=== PATIENT | female | born 1935 | race Caucasian/White ===

== ENCOUNTER 2016-07-11 09:29 | Inpatient (IN) | payer MEDICARE ==
[~2016-07-11] VITALS: Ht 154.9 cm; Wt 73.0 kg
[2016-07-11] MEDS ORDERED: WARF5TAB PO (09:52)
[2016-07-11] MEDS ORDERED: AMIO100T4 PO (09:52)
[2016-07-11] MEDS ORDERED: METO25TA35 PO (09:52)
[2016-07-11] MEDS ORDERED: AMLO5TAB2 PO (09:52)
[2016-07-11] MEDS ORDERED: FURO-93 PO (09:52)
[2016-07-11] MEDS ORDERED: ASPI-496 PO (09:52)
[2016-07-11] MEDS ORDERED: SODIUM CHLORIDE FLUSH 10ML SYR IVF ONE ×2 (10:00→10:27)
[2016-07-11 10:32] LABS: BLOOD UREA NITROGEN 20 mg/dL (7-18)
[2016-07-11 10:38] LABS: ASPARTATE AMINO TRANSFERASE 18 U/L (15-37)
[2016-07-11 10:41] LABS: IS PT STATUS REG ER OR PRE ER? YES
[2016-07-11 12:59] VITALS: BP 128/79
[2016-07-11] MEDS ORDERED: WARF2.5T73 PO (12:59)
[2016-07-11] MEDS ORDERED: PITA2TAB2 PO (12:59)
[2016-07-11] MEDS ORDERED: MEMA5TAB PO (12:59)
[2016-07-11] MEDS ORDERED: LISI5TAB7 PO (12:59)
[2016-07-11] MEDS ORDERED: EZET10TA3 PO (12:59)
[2016-07-11] MEDS ORDERED: DONE5TAB7 PO (14:16)
[2016-07-11] MEDS ORDERED: POTA10CA PO (16:51)
[2016-07-11] MEDS ORDERED: ONDANSETRON 2MG/ML, 2ML IVPush PRN (17:00)
[2016-07-11] MEDS ORDERED: FUROSEMIDE 20 MG TABLET PO PRN (17:00)
[2016-07-11] MEDS ORDERED: ACETAMINOPHEN 325 MG TABLET PO PRN (17:00)
[2016-07-11 19:37] VITALS: BP 109/68
[2016-07-11] MEDS ORDERED: EZETIMIBE 10 MG TABLET PO SCH (21:00)
[2016-07-11 21:42] LABS: IS PT STATUS REG ER OR PRE ER? NO
[2016-07-12 02:00] VITALS: BP 124/66
[2016-07-12 07:04] LABS: IS PT STATUS REG ER OR PRE ER? NO
[2016-07-12 07:05] LABS: ASPARTATE AMINO TRANSFERASE 19 U/L (15-37); BLOOD UREA NITROGEN 17 mg/dL (7-18)
[2016-07-12 08:25] VITALS: BP 136/78
[2016-07-12] MEDS ORDERED: MEMANTINE 5MG TABLET PO SCH (09:00)
[2016-07-12] MEDS ORDERED: POTASSIUM CHLORIDE 10 MEQ TABLET.ER PO SCH (09:00)
[2016-07-12] MEDS ORDERED: ASPIRIN 81 MG TABLET EC PO SCH (09:00)
[2016-07-12] MEDS ORDERED: LISINOPRIL 5 MG TABLET PO SCH (09:00)
[2016-07-12] MEDS ORDERED: AMLODIPINE 5 MG TABLET PO SCH (09:00)
[2016-07-12] MEDS ORDERED: AMIODARONE 200 MG TABLET PO SCH (09:00)
[2016-07-12] MEDS ORDERED: METOPROLOL TARTRATE 25 MG TABLET PO SCH (09:00)
[2016-07-12] MEDS ORDERED: DONEPEZIL 5 MG TABLET PO SCH (09:00)
[2016-07-12 14:46] VITALS: BP 115/74
[2016-07-12] MEDS ORDERED: WARFARIN 2.5 MG TABLET PO-COUM SCH (18:00)
[2016-07-18] MEDS ORDERED: WARFARIN 5 MG TABLET PO-COUM SCH (18:00)
== END 2016-07-12 17:43 | disposition home or self-care (01) | DRG 309 ==
LOC: ED 09:52 → EDIP 11:26 → 5SO 12:39
PROVIDERS: ADMIT Internal Medicine; ATTEND Internal Medicine
DX: I48.0 Paroxysmal atrial fibrillation (principal); D68.69 Other thrombophilia; N17.9 Acute kidney failure, unspecified; I49.5 Sick sinus syndrome; F02.80 Dementia in other diseases classified elsewhere, unspecified severity, without behavioral disturbance, psychotic disturbance, mood disturbance, and anxiety; G30.9 Alzheimer's disease, unspecified; I12.9 Hypertensive chronic kidney disease with stage 1 through stage 4 chronic kidney disease, or unspecified chronic kidney disease; I48.2 Chronic atrial fibrillation; N18.3 Chronic kidney disease, stage 3 (moderate); Z79.01 Long term (current) use of anticoagulants; Z87.442 Personal history of urinary calculi; Z87.891 Personal history of nicotine dependence
CPT/HCPCS: 36415; 71010; 80053; 83735; 83880; 84100; 84439; 84443; 84484; 85025; 85610; 85730; 93005; 93306; 96361; 96374